=== PATIENT | male | born 1980 | race African-American/Black ===

== ENCOUNTER 2023-10-27 20:48 | Inpatient (IN) | payer OTHER ==
[2023-10-27 21:31] VITALS: BMI 27.1
[2023-10-27] MEDS ORDERED: POLYETHYLENE GLYCOL (HEALTHYLAX) 3350 17 GM PACKET PO PRN (22:24)
[2023-10-27] MEDS ORDERED: NALOXONE HCL 0.4 MG/ML VIAL IM PRN (22:24)
[2023-10-27] MEDS ORDERED: guaiFENesin 600 MG TABLET.ER (FP) PO PRN (22:24)
[2023-10-27] MEDS ORDERED: hydrOXYzine PAMOATE 25 MG CAPSULE (FP) PO PRN (22:24)
[2023-10-27] MEDS ORDERED: DICYCLOMINE HCL 10 MG CAPSULE PO PRN (22:24)
[2023-10-27] MEDS ORDERED: NALOXONE HCL (KLOXXADO) 8 MG SPRAY NS PRN (22:24)
[2023-10-27] MEDS ORDERED: IBUPROFEN 400 MG TABLET (FP) PO PRN (22:24)
[2023-10-27] MEDS ORDERED: NICOTINE POLACRILEX 2 MG GUM BUC PRN (22:24)
[2023-10-27] MEDS ORDERED: BISMUTH SUBSALICYLATE 524 MG/30 ML PO PRN (22:24)
[2023-10-27] MEDS ORDERED: BENZONATATE 200 MG CAPSULE PO PRN (22:24)
[2023-10-27] MEDS ORDERED: LOPERAMIDE HCL 2 MG CAPSULE PO PRN (22:24)
[2023-10-27] MEDS ORDERED: MAG HYDROX/AL HYDROX/SIMETH 30 ML UNIT-DOSE CUP PO PRN (22:24)
[2023-10-27] MEDS ORDERED: P-EPHED 60MG/TRIPROLIDI 2.5MG TABLET PO PRN (22:24)
[2023-10-27] MEDS ORDERED: BENZOCAINE/MENTHOL (CHLORASEPTIC ) LOZENGE MM PRN (22:24)
[2023-10-27] MEDS ORDERED: ONDANSETRON *ODT* 4 MG TABLET SL PRN (22:24)
[2023-10-28] MEDS: PRENATAL VITAMINS W/ FOLIC ACID TABLET (FP) PO SCH (09:27)
[2023-10-28 12:49] LABS: POTASSIUM 3.6 mmol/L (3.5-5.1)
[2023-10-28 12:51] LABS: CALCIUM 9.1 mg/dL (8.5-10.1)
[2023-10-28 12:52] LABS: ALBUMIN 3.5 g/dl (3.4-5.0); BLOOD UREA NITROGEN 9.6 mg/dL (7-18)
[2023-10-28 12:53] LABS: HEMATOCRIT 36.5 % (35.4-49); HEMOGLOBIN 12.4 GM/dL (11.7-16.9); MCH 29.2 pg (25.7-33.7); MEAN CELL VOLUME 86.1 fl (80-96); MEAN PLT VOLUME 8.1 fl (7.5-11.1); PLATELET COUNT 298 10^3/uL (134-434); RBC 4.24 M/mm3 (4.00-5.60); RDW 13.5 % (11.9-15.9); WHITE BLOOD COUNT 9.2 K/mm3 (4.0-10.0)
[2023-10-28 12:55] LABS: CREATININE 0.8 mg/dL (0.55-1.3)
[2023-10-28 12:57] LABS: BILIRUBIN,TOTAL 0.3 mg/dL (0.2-1); TOT PROT 6.7 g/dl (6.4-8.2)
[2023-10-28] MEDS: diazePAM 5 MG TABLET PO SCH (15:47)
[2023-10-28] MEDS: methaDONE HCL 10 MG TABLET (FOR DETOX USE ONLY) PO ONE (15:47)
[2023-10-28] MEDS: cloNIDine HCL 0.1 MG TABLET PO PRN (17:26)
[2023-10-28] MEDS: IBUPROFEN 600 MG TABLET (FP) PO PRN (17:26)
[2023-10-28] MEDS: MELATONIN 5 MG TABLETS PO SCH (21:11)
[2023-10-28] MEDS: THIAMINE HCL 100 MG TABLET (FP) PO SCH (21:11)
[2023-10-29] MEDS: diazePAM 5 MG TABLET PO SCH (06:27)
[2023-10-29] MEDS: diazePAM 5 MG TABLET PO PRN (09:55)
[2023-10-29] MEDS: METHOCARBAMOL 500 MG TABLET PO PRN (14:29)
[2023-10-29 21:09] VITALS: RESP 18
[2023-10-29] MEDS: MAGNESIUM HYDROX 2400MG/30ML ORAL SUSPENSION 30 ML CUP PO PRN (23:01)
[2023-10-30] MEDS: diazePAM 5 MG TABLET PO SCH (05:40)
[2023-10-30] MEDS: ACETAMINOPHEN 325 MG TABLET (FP) PO PRN (09:14)
[2023-10-30] MEDS: methaDONE HCL 10 MG TABLET (FOR DETOX USE ONLY) PO ONE (09:15)
[2023-10-30 09:20] VITALS: BP 149/111; PULSE 67; TEMP 97.3
[2023-10-31] MEDS ORDERED: diazePAM 5 MG TABLET PO ONE (06:00)
[2023-11-01] MEDS ORDERED: methaDONE HCL 10 MG TABLET (FOR DETOX USE ONLY) PO ONE (10:00)
== END 2023-10-30 12:02 | disposition left against medical advice (07) | DRG 770 ==
LOC: YASAS 20:48 → Y3N 23:11 → Y6N 10-29 10:33
PROVIDERS: ADMIT Allergy & Immunology; ATTEND Family Medicine Addiction Medicine
PROC: HZ2ZZZZ Detoxification Services for Substance Abuse Treatment (ICD-10-PCS; principal; 2023-10-27)
DX: F11.23 Opioid dependence with withdrawal (principal); F10.230 Alcohol dependence with withdrawal, uncomplicated; F13.10 Sedative, hypnotic or anxiolytic abuse, uncomplicated; F14.10 Cocaine abuse, uncomplicated; F17.210 Nicotine dependence, cigarettes, uncomplicated; Z28.310 Unvaccinated for COVID-19; Z28.9 Immunization not carried out for unspecified reason
CPT/HCPCS: 36415; 80053; 80305; 85027; 86780; 87635; 93005; 93010